=== PATIENT | female | born 1950 | race Caucasian/White ===

== ENCOUNTER → 2018-01-01 | Outpatient (CLI) | payer MEDICARE, OTHER | LOC: M.RAD 11:42 | DX: J20.9 Acute bronchitis, unspecified (principal) ==

== ENCOUNTER 2021-03-27 19:27 | Emergency (ER) | payer MEDICARE, OTHER ==
[~2021-03-27] VITALS: Ht 167.6 cm; Wt 63.5 kg
--- NOTE | ~2021-03-27 | EMS ---
[facility] [address] [place] [address] EMS Patient Care Report Name: KARIE AMARO Room: [facility] JOSE Acevedo#: [id number] Admission: 03/27/21 Attend Phys: Discharge: 03/27/21 Date of : 46 Report #: [id number] THIS REPORT FOR: //name// Report Transmitted: 03/27/2021 21:03 EMS Care Summary [facility] [place] Incident [id number] @ 03/27/2021 18:43 Incident Location [address] [place] [address] Patient KARIE AMARO Female, 70 Years 1950 Patient Address [address] [place] [id number] Patient Allergies , Patient Medications Raloxifene, Claritin, Chief Complaint Allergic reaction Disposition Transported No Lights/[place] Dispatch Reason Unknown Problem/Person Down Transported To [facility] Narrative [facility] was dispatched to [place] [facility] ([facility] Station [facility] for a reported allergic reaction. Upon arrival, the pt was found sitting on a chair in the fire bay being assessed by members from [facility]. [facility] and the pt reported that the pt had been stung by several hornets or yellow jackets while she was out watering her acosta. The pt reported that she took a shower and some Claritin to see if it would bring her relief. The pt stated that when her lips and tongue continued to swell, she drove herself to the fire station because [address] [address] EMS Patient Care Report Name: KARIE AMARO Room: [facility] Kristina#: [id number] Admission: 03/27/21 Attend Phys: Discharge: 03/27/21 Date of : 46 Report #: [id number] she was not sure if she would be able to drive herself all the way to the hospital. The pt stated that she also did not want to burden the hospital as they were dealing with so many COVID pts. The pt was assured that her health was just as important as anyone with COVID and she would be seen. The pt stated that she felt better with the oxygen [facility] had administered and wanted to see if she even needed to go to the hospital. The pt was assisted to the cot in the back of the ambulance for further evaluation, all these things occurring without incident. Once in the unit, the pt stated that she did in fact want be transported to the hospital because her lips and tongue were starting to swell again and she noticed more hives on her legs than there had been before. The pt denied difficulty breathing. Vascular access was obtained, blood was drawn, and medication was administered as recorded above. Additional vitals and 4-lead EKGs were obtained as recorded above. The pt stated that she felt relief with the medication; her mouth felt less swollen and the itching from the hives reduced from a 7 at its worse to a current 3 on a scale from 0-10. The pt's condition and vitals were monitored for the duration of the transport. The pt's signature indicating consent for transport was obtained on the tablet, please see below. The pt was transported non-emergency to [facility] ([facility]) Emergency Department Room 1. Pt care was transferred to [facility] staff. The pt was assisted to stand and pivot from the cot to the hospital bed, all these things occurring without incident. [facility] in-service and available at the time stated above. RMontes Initial Vitals @19:07 @19:22 @BUG TRIMMER @PTAP: 68,BP: 117/93, @19:06P: 72,R: 16,BP: 147/75, @19:14P: 69,R: 16,BP: 132/89, @19:23P: 67,R: 14,BP: 124/59, @PTAGCS: 15, @19:06GCS: 15, @19:14GCS: 15, @19:23GCS: 15, Assessments @18:52MENTAL:SKIN:HEENT:LUNG SOUNDS:ABDOMEN:PELVIS//GI:EXTREMITIES:PULSE:NEURO: Impression Allergic Reaction Procedures @PTAOxygen Complications: ,@19:01Diphenhydramine - 25.000 Milligrams (mg) - Intravenous (IV)Response: Improved@18:59 cc () Site: Forearm-LeftResponse: [place] [address] EMS Patient Care Report Name: KARIE AMARO Room: [facility] Acevedo#: [id number] Admission: 03/27/21 Attend Phys: Discharge: 03/27/21 Date of : 46 Report #: [id number] UnchangedSucceeded@19:00 cc () Response: UnchangedSucceeded@19:073-Lead ECGResponse: UnchangedSucceeded@19:223-Lead ECGResponse: UnchangedSucceeded@PTA3-Lead ECGResponse: UnchangedSucceeded Timeline BUG TRIMMER,Oxygen Complications: ,, BUG TRIMMER,3-Lead ECG,Response: UnchangedSucceeded, BUG TRIMMER,BP: / M,PULSE: ,RR: R,SPO2: Ox,ETCO2: ,BG: ,PAIN: ,GCS: , BUG TRIMMER,BP: 117/93 M,PULSE: 68,RR: R,SPO2: Ox,ETCO2: ,BG: ,PAIN: ,GCS: , BUG TRIMMER,BP: / M,PULSE: ,RR: R,SPO2: Ox,ETCO2: ,BG: ,PAIN: ,GCS: 15, 18:42,Call Received 18:42,Dispatch Notified 18:42,Psap Call 18:43,Dispatched 18:43,En Route 18:51,On Scene 18:52,At Patient 18:59, cc Site: Forearm-Left,Response: UnchangedSucceeded, 19:00, cc Site: ,Response: UnchangedSucceeded, 19:01,Diphenhydramine - 25.000 Milligrams (mg) - Intravenous (IV),Response: Improved 19:06,BP: 147/75 M,PULSE: 72,RR: 16 R,SPO2: Ox,ETCO2: ,BG: ,PAIN: ,GCS: , 19:06,BP: / M,PULSE: ,RR: R,SPO2: Ox,ETCO2: ,BG: ,PAIN: ,GCS: 15, 19:07,3-Lead ECG,Response: UnchangedSucceeded, 19:07,BP: / M,PULSE: ,RR: R,SPO2: Ox,ETCO2: ,BG: ,PAIN: ,GCS: , 19:08,Depart Scene 19:14,BP: 132/89 M,PULSE: 69,RR: 16 R,SPO2: Ox,ETCO2: ,BG: ,PAIN: ,GCS: , 19:14,BP: / M,PULSE: ,RR: R,SPO2: Ox,ETCO2: ,BG: ,PAIN: ,GCS: 15, 19:22,3-Lead ECG,Response: UnchangedSucceeded, 19:22,BP: / M,PULSE: ,RR: R,SPO2: Ox,ETCO2: ,BG: ,PAIN: ,GCS: , 19:22,At Destination 19:23,BP: 124/59 M,PULSE: 67,RR: 14 R,SPO2: Ox,ETCO2: ,BG: ,PAIN: ,GCS: , 19:23,BP: / M,PULSE: ,RR: R,SPO2: Ox,ETCO2: ,BG: ,PAIN: ,GCS: 15, 19:40,Call Closed Disclaimer v1.1 Copyright 2020 [employer] This EMS Care Summary contains data elements from the applicable legal record (which may be displayed differently). It is designed to provide pertinent information for the following purposes: continuity of care, clinical quality, and state data reporting. The complete legal record is available to ED staff and administrators of the receiving hospital in [employer] Patient Tracker. All data is provided "as is."
[~2021-03-27 19:27] MED LIST: CALCIUM 500 +1 EAC5 PO; FOSAMAX 70 MG T70 MG PO; PREDNISONE50 MG PO; TRIAMCINOLONE A15 G1 TOP; UNICOMPLEX M TA1 TA1 PO; VITAMINC500 PO
[2021-03-27] MEDS ORDERED: EVISTA60 MG PO (19:38)
[2021-03-27] MEDS ORDERED: EPIPEN0.3 MG/0.1 IM (20:28)
[2021-03-27] MEDS ORDERED: PREDNISONE50 MG PO (20:28)
[2021-03-27 21:35] VITALS: BP 138/65
== END 2021-03-27 21:35 | disposition home or self-care (01) ==
LOC: M.ERS 19:27
DX: T78.40XA Allergy, unspecified, initial encounter (principal); X58.XXXA Exposure to other specified factors, initial encounter; Z88.8 Allergy status to other drugs, medicaments and biological substances; Z88.2 Allergy status to sulfonamides; Z91.018 Allergy to other foods; Z79.899 Other long term (current) drug therapy